=== PATIENT | female | born 1945 | race Hispanic/Latino ===

== ENCOUNTER 2017-08-20 10:03 | Emergency (ER) | payer MEDICARE, OTHER ==
[2017-08-20 10:50] LABS: #Basophils 0.1 thou/uL (0.0-0.2); #Eosinphils 0.2 thou/uL (0.0-0.7); #Lymphocytes 2.5 thou/uL (1.20-3.40); #Monocytes 0.3 thou/uL (0.11-0.59); #Neutrophils 4.7 thou/uL (1.40-6.50); %Basophils 0.7 % (0.0-1.0); %Eosinophils 2.8 % (0.0-10.0); %Lymphocytes 31.6 % (21.0-51.0); %Monocytes 4.4 % (0.0-10.0); Hematocrit 37.3 % (36.0-47.0); Mean Platelet Volume 7.7 fL (7.4-10.4); Red Blood Cell (RBC) Count 3.63 mill/uL (4.20-5.40); White Blood Cell (WBC) Count 7.8 thou/uL (4.8-10.8)
[2017-08-20 11:14] LABS: ALT (SGPT) 29 U/L (8-55); AST (SGOT) 36 U/L (5-34); Alkaline Phosphatase 153 U/L (40-150); Anion Gap 11 mmol/L (10-20); BUN (Urea Nitrogen) 29 mg/dL (9.8-20.1); Bilirubin, Total 0.3 mg/dL (0.2-1.2); Calc. Creatinine Clearance 0 mL/min (70-130); Calcium 8.6 mg/dL (7.8-10.44); Carbon Dioxide 24 mmol/L (23-31); Chloride 115 mmol/L (98-107); Estimated GFR-MDRD 81; Globulin 4.4 g/dL (2.4-3.5); Protein, Total 7.1 g/dL (6.0-8.3)
[2017-08-20 11:19] LABS: Troponin I Less than 0.010 ng/mL (< 0.028)
--- NOTE | 2017-08-20 11:21 | RAD ---
PORTABLE CHEST: Date: 08/20/17 HISTORY: Dyspnea. COMPARISON: 08/31/16. FINDINGS: Slight elevation right hemidiaphragm is stable. Relatively poor inspiration. Visualized lung saab appear clear with no infiltrate or effusion seen. Heart size is mildly prominent. Vascular markings within normal range. Old left-sided rib fractures noted. IMPRESSION: No evidence of acute process. POS: [facility]
--- NOTE | 2017-08-20 13:05 | CT ---
CT ANGIO CHEST WITH CONTRAST: Date: 08/20/17 Multiple axial tomograms obtained through chest following pulmonary angio protocol with multiplanar reconstruction and 3D postprocessing. HISTORY: D-Dimer elevation. Shortness of breath. FINDINGS: Pulmonary arteries show adequate enhancement. No evidence of pulmonary embolus identified. Mild atelectasis in the posterior lung bases. No evidence of lung infiltrate. There is a calcified g ranuloma in the anterior left mid lung measuring up to 6.0 mm. There is another smaller calcified gr anuloma seen in the left mid lung anteriorly on the left, which is pleural based, measuring approxim ately 3.0 mm. Thoracic aorta shows no evidence of dissection. There are atherosclerotic changes seen. Mediastinum unremarkable. Images through upper abdomen are unremarkable. IMPRESSION: 1. No evidence of pulmonary embolus. 2. No evidence of inflammatory lung infiltrate. POS: [facility]
[2017-08-20] MEDS ORDERED: ISOVUE-370 76%-LOCM 1 ML ONE (15:26)
== END 2017-08-20 13:30 ==
LOC: ERS 10:03
DX: R06.02 Shortness of breath (principal); I10 Essential (primary) hypertension; E78.5 Hyperlipidemia, unspecified; Z86.73 Personal history of transient ischemic attack (TIA), and cerebral infarction without residual deficits
CPT/HCPCS: 36415; 71010; 71275; 80053; 82553; 84484; 85025; 85379

== ENCOUNTER 2017-10-06 09:15 | Inpatient (IN) | payer MEDICARE, MEDICAID ==
[2017-10-06 09:41] LABS: #Eosinphils 0.2 thou/uL (0.0-0.7); #Lymphocytes 1.8 thou/uL (1.20-3.40); #Monocytes 0.4 thou/uL (0.11-0.59); #Neutrophils 6.4 thou/uL (1.40-6.50); %Eosinophils 2.8 % (0.0-10.0); %Lymphocytes 20.6 % (21.0-51.0); %Monocytes 4.3 % (0.0-10.0); Hematocrit 33.2 % (36.0-47.0); Mean Platelet Volume 7.1 fL (7.4-10.4); Red Blood Cell (RBC) Count 3.19 mill/uL (4.20-5.40); White Blood Cell (WBC) Count 8.9 thou/uL (4.8-10.8)
[2017-10-06 09:56] LABS: Bilirubin Negative (Negative); Blood, Urine Negative (Negative); Glucose, Urine (Dipstick) Negative (Negative); Ketone, Urine Negative (Negative); Nitrite Negative (Negative); Protein, Urine (Dipstick) 30 mg/dL (Neg-Trace)
[2017-10-06 09:58] LABS: Bacteria/HPF Rare-Few HPF (None Seen); RBC/HPF None Seen HPF (0-3); WBC/HPF 0-3 HPF (0-3)
[2017-10-06 10:01] LABS: Troponin I Less than 0.010 ng/mL (< 0.028)
[2017-10-06 10:07] LABS: Lactic Acid - Sepsis 1.7 mmol/L (0.5-2.2)
[2017-10-06 10:17] LABS: Hyaline Casts/LPF 0-3 HYALINE CAST LPF (0-3 Hyaline)
[2017-10-06 10:18] LABS: Yeast-All Forms None Seen HPF (None Seen)
[2017-10-06 10:36] LABS: ALT (SGPT) 20 U/L (8-55); AST (SGOT) 29 U/L (5-34); Alkaline Phosphatase 182 U/L (40-150); Anion Gap 9 mmol/L (10-20); BUN (Urea Nitrogen) 41 mg/dL (9.8-20.1); Bilirubin, Total Less than 0.2 mg/dL (0.2-1.2); CK (CPK) 101 U/L (29-168); Calc. Creatinine Clearance 0 mL/min (70-130); Calcium 8.7 mg/dL (7.8-10.44); Carbon Dioxide 27 mmol/L (23-31); Chloride 113 mmol/L (98-107); Estimated GFR-MDRD 76; Globulin 4.6 g/dL (2.4-3.5); Lipase 41 U/L (8-78); Protein, Total 7.1 g/dL (6.0-8.3)
--- NOTE | 2017-10-06 10:52 | RAD ---
PORTABLE CHEST: Date: 10/06/17 HISTORY: Dyspnea. COMPARISON: 08/20/17. FINDINGS: No definite infiltrate on this portable projection. No significant effusion. Old left rib fractures a gain noted. Heart size upper normal and stable. Prominent aortic calcification. IMPRESSION: No evidence of infiltrate or acute interval change identified. POS: [facility]
--- NOTE | 2017-10-06 11:29 | CT ---
CONTRAST ENHANCED CTA CHEST: HISTORY: Dyspnea. TECHNIQUE: Contrast-enhanced CTA of chest was performed. Two-D and 3D reconstructed images performed on an [employer] 3D work station. COMPARISON: Comparison is made to a previous CTA chest from 08/20/17. FINDINGS: There is interval development of a new area of consolidation and atelectasis which has increased in t he posterior aspect of the right lower lobe. An area of soft tissue density has developed also in th e left lower lobe possibly represent a round pneumonia or areas of atelectasis. This also was not pr esent on the previous exam. No evidence of a filling defect is seen in the pulmonary arteries to sug gest pulmonary emboli. The aorta is unremarkable. There is a newly developed airspace opacity in th e lateral aspect of the right middle lobe. Heterogeneity is seen in the gallbladder with some heterogeneous wall enhancement. This may represen t acute cholecystitis. Other possibilities could include gallbladder neoplasm. IMPRESSION: 1. Multiple increasing areas of airspace disease concerning for areas of patchy pneumonia as describ ed above. 2. Gallbladder wall thickening concerning for acute cholecystitis versus possible gallbladder wall n eoplasm. Correlate with right upper quadrant sonography as well as surgical consultation. POS: [facility]
[2017-10-06] MEDS ORDERED: MEROPENEM 1 GM/50 ML 1 GM in Premix Bag 1 BAG IVPB SCH (12:00)
[2017-10-06] MEDS ORDERED: Piperacillin/Tazobactam 4.5 GM in Sodium Chloride 0.9% 100 ML IVPB SCH (12:00)
[2017-10-06] MEDS ORDERED: cefTRIAXone\\ROCEPHIN 1 GM in Sodium Chloride 0.9% 100 ML IVPB SCH (13:05)
[2017-10-06] MEDS ORDERED: Acetaminophen 325 MG TAB PO PRN (13:05)
[2017-10-06] MEDS ORDERED: Ondansetron ODT 4 MG TAB PO PRN (13:05)
[2017-10-06 13:16] VITALS: BMI 24.8
[2017-10-06] MEDS ORDERED: cefTRIAXone\\ROCEPHIN 1 GM, Syringe 0.4 ML in Sterile Water 9.6 ML SLOW IVP SCH (14:00)
[2017-10-06] MEDS: Sodium Chloride 0.9% 1,000 ML IV SCH ×2 (14:49→23:15)
[2017-10-06] MEDS: Azithromycin 500 MG in Sodium Chloride 0.9% 250 ML 250 ML IVPB SCH (14:50)
[2017-10-06 14:58] LABS: Strp pneuU Control Background? CLEAR/WHITE (CLR/WHITE); Strp pneumo Control Bar Appear YES (CONTROL BAR)
[2017-10-06] MEDS ORDERED: ISOVUE-370 76%-LOCM 1 ML ONE (17:26)
--- NOTE | 2017-10-06 17:37 | ULT ---
RIGHT UPPER QUADRANT ULTRASOUND 10/06/17 INDICATION: History of cholelithiasis. COMPARISON: CTA of the thorax dated 10/06/17. FINDINGS: Overlying bowel heavily limits imaged detail. There is a shadowing echogenic focus seen within the expected region of the gallbladder measuring 9 m m suspicious for gallstone. The partially visualized liver measured up to 17.1 cm. No definite focal liver lesion is evident; however, image detail was heavily limited. Common bile duct was not seen. Th e pancreas was not seen. The right kidney measured approximately 8.4 x 5.1 x 4.9 cm without evidence of hydronephrosis. IMPRESSION: 1. Heavily limited exam due to overlying bowel gas. 2. Cholelithiasis. The gallbladder was not very well seen due to adjacent bowel gas. 3. Limitations as above. POS: [facility]
--- NOTE | 2017-10-06 17:43 | HP-2 ---
CODE STATUS: DNR PCP: Dr. Lara with [facility]. ATTENDING: Dr. Chun. RESIDENT: Dr. Odonnell. HISTORIAN: Nursing staff in the ER and her family. CHIEF COMPLAINT: Breathing trouble. HISTORY OF PRESENT ILLNESS: A 71-year-old female with past medical history of hypertension and CVA t hat presents with a 2-week history of cough and congestion that resides at a assisted. EMS state s that she was breathing faster and had a nonproductive cough and spiked a fever to 100.0. Nursing s bryanna wanted to evaluate for a pulmonary embolism, so she was brought to the ED. When she was brought to the ED, family and nursing staff report that she has been at baseline mentation. She had no othe r complaints at this time. The patient is basically aphasic. In the ER, she was given meropenem, va ncomycin, and Zosyn. PAST MEDICAL HISTORY: Significant for, 1. Hypertension, 2. 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 3. Physical deconditioning. 4. Trigeminal neuralgia. 5. Chronic dysphagia. 6. Dementia. 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 ALLERGIES: LEVAQUIN. MEDICATIONS: Include, 1. Adult aspirin 81 mg p.o. daily. 2. Carbamazepine 100 mg per 5 mL. 3. Polyethylene glycol. 4. Nexium 40 mg p.o. daily. 5. Loperamide. 6. Tylenol 325. 7. Dulcolax. 8. Nutritional supplements. FAMILY HISTORY: Noncontributory. SOCIAL HISTORY: No tobacco, alcohol or drug use. REVIEW OF SYSTEMS: General: Does admit to fevers. Denies any weight change, night sweats, or fatig ue. Eyes: Denies vision change or eye pain. ENT: Denies nasal congestion, rhinorrhea, or sore thr oat. Respiratory: Does admit to cough and congestion. Denies any shortness of breath or exercise i ntolerance. Cardiovascular: Denies chest pain, palpitations edema, or orthopnea. Gastrointestinal: Denies nausea, vomiting, diarrhea, constipation, abdominal pain, GI bleeding. Genitourinary: Delvis es incontinence, dysuria, polyuria, discharge. Skin: Denies rashes, lesions, jaundice, itching. Mu sculoskeletal: Denies pain, tenderness, stiffness, swelling, or arthritis. Neurologic: Denies weak ness, numbness, syncope, seizures. Psychiatric: Denies anxiety or depression. PHYSICAL EXAMINATION: VITAL SIGNS: Blood pressure 111/62, pulse 72, respirations 25, temperature max was 100.0, pulse oxim etry 99% on room air, current weight is 68 kilos. GENERAL: Alert and oriented. She was moaning, well-developed, well-nourished. She would shake her head to yes or no questions, but basically was aphasic. EYES: PERRLA. Conjunctivae within normal limits. ENT: Dry mucous membranes. NECK: Supple, with thyromegaly. CARDIOVASCULAR: Regular rate and rhythm. No murmurs, no gallops. Radial pulses and pedal pulses we re equal bilaterally. She was tachypneic. CHEST: She has had no retractions. She had rhonchi anteriorly. Breath sounds difficult to assess, because of her moaning. SKIN: Warm, dry. No cyanosis. No lesions. ABDOMEN: She was soft. She did have tenderness to palpation in right upper quadrant. No masses or distention. EXTREMITIES: No clubbing, cyanosis, no edema. MUSCULOSKELETAL/NEUROLOGICAL EXAMS: Were not performed on this patient. She did have a left-sided f acial droop that is longstanding and her mentation is at baseline. PSYCHIATRIC: She was appropriate. LABORATORY DATA: She had a white blood cell count of 8.9, platelet count of 402, hemoglobin of 10.4, hematocrit 33.2, MCV of 104%, neutrophils 72.4, CK 101, CK-MB 0.8, troponin I is less than 0.01, lip ase 41. BNP was 51.2. Sodium 145, potassium 4.3, chloride 113, bicarbonate 27, BUN 41, creatinine 0 .75, glucose 274. Calcium was 8.7, total protein 7.1, albumin 2.5, AST was 29, ALT 20, alkaline phos phatase 182, total bilirubin is less than 0.2. Influenza A and B were negative. Lactate was 1.7. E KG showed sinus rhythm with few PVCs. Chest x-ray showed no evidence of infiltrate or acute interval change. IMAGING: CTA of the chest showed multiple increasing areas of airspace disease concerning for patchy pneumonia and gallbladder wall thickening. ASSESSMENT AND PLAN: This is a 71-year-old female, who presents with: 1. Pneumonia, community acquired versus aspiration pneumonia. We will give her azithromycin, vancom ycin, and Zosyn. We will give her IV fluids. We do have blood and urine cultures pending and O2 sup plementations if needed. 2. Gallbladder wall thickening, found on CT scan. We will get a right upper quadrant ultrasound and correlate clinically to determine if surgery consult is needed. 3. History of a CVA. Her mentation is at baseline. We will follow that along. 4. Hypertension. We will keep her systolic blood pressure low in 160. Do not anticipate any proble ms with this, as she is not medicated at home. 5. Physical deconditioning. We will get a PT evaluation and treatment. 6. Hyperglycemia without a diagnosis of diabetes. We will trend her glucose and see if it stays earnestine vated. DISPOSITION AND LENGTH OF HOSPITAL STAY: Medically 2 midnights. Symptomatic medications will be pro vided. History and physical exams as well as management has been discussed with Dr. Chun.
[2017-10-06] MEDS: Piperacillin/Tazobactam 3.375 GM in Sodium Chloride 0.9% 100 ML IVPB SCH ×2 (18:21→23:17)
[2017-10-06] MEDS ORDERED: Vancomycin HCl 1 GM in Premix Bag 1 BAG IVPB SCH (23:59)
[2017-10-07 04:35] LABS: #Eosinphils 0.2 thou/uL (0.0-0.7); #Lymphocytes 0.9 thou/uL (1.20-3.40); #Monocytes 0.3 thou/uL (0.11-0.59); #Neutrophils 5.1 thou/uL (1.40-6.50); %Basophils 0.2 % (0.0-1.0); %Eosinophils 3.3 % (0.0-10.0); %Lymphocytes 13.9 % (21.0-51.0); %Monocytes 4.2 % (0.0-10.0); Hematocrit 29.4 % (36.0-47.0); Mean Platelet Volume 7.1 fL (7.4-10.4); Red Blood Cell (RBC) Count 2.84 mill/uL (4.20-5.40); White Blood Cell (WBC) Count 6.5 thou/uL (4.8-10.8)
[2017-10-07 04:46] LABS: Anion Gap 8 mmol/L (10-20); BUN (Urea Nitrogen) 30 mg/dL (9.8-20.1); Calc. Creatinine Clearance 70 mL/min (70-130); Carbon Dioxide 25 mmol/L (23-31); Chloride 115 mmol/L (98-107); Estimated GFR-MDRD 84
[2017-10-07] MEDS: Piperacillin/Tazobactam 3.375 GM in Sodium Chloride 0.9% 100 ML IVPB SCH ×4 (06:00→23:26)
[2017-10-07] MEDS: Sodium Chloride 0.9% 1,000 ML IV SCH ×3 (06:03→23:30)
--- NOTE | 2017-10-07 06:35 | PDOC.FM ---
- Subjective Subjective: Patient is aphasic. Patient is still having the "moaning" with breathing. She denies any pains anywhere. She denies trouble breathing. Patient is difficult to interview. - Objective Vital Signs & Weight: Vital Signs (12 hours) Temp Pulse Resp BP Pulse Ox 10/07/17 05:05 98.2 F 73 16 133/76 94 L 10/07/17 00:00 98.2 F 68 18 125/59 L 96 10/06/17 21:42 97.7 F 67 18 122/73 97 10/06/17 20:25 97.7 F 67 18 97 Weight Weight 59.591 kg Result Diagrams: 10/07/17 04:18 10/07/17 04:18 <Lei Odonnell - Last Filed: 10/07/17 07:55> - Objective Vital Signs & Weight: Vital Signs (12 hours) Temp Pulse Resp BP Pulse Ox 10/07/17 08:07 97.9 F 67 16 125/83 97 10/07/17 05:05 98.2 F 73 16 133/76 94 L 10/07/17 00:00 98.2 F 68 18 125/59 L 96 Weight Weight 59.591 kg Result Diagrams: 10/07/17 04:18 10/07/17 04:18 <Mae Pierson - Last Filed: 10/07/17 10:41> Phys Exam - Physical Examination HEENT: moist MMs Neck: no nodes Respiratory: no wheezing Heart to auscultate with moaning sounds Cardiovascular: RRR, no significant murmur Gastrointestinal: soft, non-tender, no distention, positive bowel sounds Specifically nontender in RUQ Musculoskeletal: no edema, pulses present Neurological: non-focal, normal sensation, moves all 4 limbs Lymphatic: no nodes Psychiatric: normal affect, A&O x 3 Skin: no rash <Lei Odonnell - Last Filed: 10/07/17 07:55> Dx/Plan (1) Pneumonia Code(s): J18.9 - PNEUMONIA, UNSPECIFIED ORGANISM Status: Acute QualifierTitle: Laterality: bilateral Plan: -Aspiration vs. Community Acquired -Vanc, Zosyn, Azithrymycin 10/06 -Vanc stopped 10/07 -Will monitor for signs and symptoms of worsening. (2) Weakness due to cerebrovascular accident Code(s): I63.9 - CEREBRAL INFARCTION, UNSPECIFIED; R53.1 - WEAKNESS Status: Chronic Plan: -CVA 6 years ago -Left sided facial droop and weakness -Staff and Family report patient is at baseline. (3) Hyperglycemia Code(s): R73.9 - HYPERGLYCEMIA, UNSPECIFIED Status: Acute Plan: -No known diagnosis of DM -Will get A1C (4) Physical deconditioning Code(s): R53.81 - OTHER MALAISE Status: Acute Plan: -Chronic from CVA weakness -PT evaluation and treatment will see -Will return to [facility] care facility on discharge. (5) Thickening of wall of gallbladder Code(s): K82.8 - OTHER SPECIFIED DISEASES OF GALLBLADDER Status: Acute Plan: -Seen initially on CT scan -RUQ US showed Cholithiasis with limitations from bowel gas -Will consider surgery consultation if symptomatic or signs of infection present. - Plan Plan: Will continue current plan of care. <Lei Odonnell - Last Filed: 10/07/17 07:55> Attending Addendum - Attending Addendum I personally evaluated the patient and discussed the management with Dr. Odonnell I agree with the History, Examination, Assessment and Plan documented above with any addition or exceptions noted below- Ptainet aphasic unable to respond except with moaning. Afebrile VSS. A/P: 1) Pneumonia- continue zosyn and zithromax; continue to monitor resp status. Currently no tachypena and normal O2 sats. 2) HTN- continue home meds, 3) H/o CVA with residual aphasia and left sided weakness- stable. 4) Hyperglycemia- checl HgBA1c <Mae Pierson - Last Filed: 10/07/17 10:41>
[2017-10-07] MEDS: Enoxaparin Sodium 40 MG/0.4 ML SYRINGE SC SCH (08:45)
[2017-10-07] MEDS ORDERED: FLU VACC TS2017-18 (>65YR) 0.5 ML SYRINGE IM ONE (09:00)
[2017-10-07] MEDS: Azithromycin 500 MG in Sodium Chloride 0.9% 250 ML 250 ML IVPB SCH (14:09)
[2017-10-08 05:09] LABS: Anion Gap 7 mmol/L (10-20); BUN (Urea Nitrogen) 21 mg/dL (9.8-20.1); Calc. Creatinine Clearance 78 mL/min (70-130); Calcium 7.7 mg/dL (7.8-10.44); Carbon Dioxide 22 mmol/L (23-31); Chloride 118 mmol/L (98-107); Estimated GFR-MDRD Greater than 90
[2017-10-08 05:10] LABS: #Eosinphils 0.2 thou/uL (0.0-0.7); #Lymphocytes 1.4 thou/uL (1.20-3.40); #Monocytes 0.3 thou/uL (0.11-0.59); #Neutrophils 4.6 thou/uL (1.40-6.50); %Basophils 0.1 % (0.0-1.0); %Eosinophils 2.6 % (0.0-10.0); %Lymphocytes 21.7 % (21.0-51.0); %Monocytes 5.2 % (0.0-10.0); Hematocrit 28.1 % (36.0-47.0); Mean Platelet Volume 7.1 fL (7.4-10.4); Red Blood Cell (RBC) Count 2.73 mill/uL (4.20-5.40); White Blood Cell (WBC) Count 6.6 thou/uL (4.8-10.8)
[2017-10-08] MEDS: Piperacillin/Tazobactam 3.375 GM in Sodium Chloride 0.9% 100 ML IVPB SCH ×2 (05:37→11:37)
--- NOTE | 2017-10-08 07:14 | PDOC.FM ---
- Subjective Subjective: Patient does not speak. Appears to be at baseline mentation. Specifically denies pain. - Objective Vital Signs & Weight: Vital Signs (12 hours) Temp Pulse Resp BP Pulse Ox 10/08/17 04:00 95 10/08/17 01:05 98.6 F 74 20 122/69 95 10/07/17 20:07 98.6 F 79 22 H 161/80 H 96 10/07/17 19:51 98.8 F 90 18 Weight Weight 59.591 kg I&O: 10/07/17 10/08/17 10/09/17 06:59 06:59 06:59 Intake Total 1527 Output Total 2 Balance 1527 -2 Result Diagrams: 10/08/17 04:41 10/08/17 04:41 <Lei Odonnell - Last Filed: 10/08/17 08:42> - Objective Vital Signs & Weight: Vital Signs (12 hours) Temp Pulse Resp BP Pulse Ox 10/08/17 12:13 97.6 F 89 18 92/61 93 L 10/08/17 08:05 98.3 F 66 18 10/08/17 07:28 98.3 F 66 18 133/65 94 L 10/08/17 04:00 95 10/08/17 01:05 98.6 F 74 20 122/69 95 Weight Weight 59.591 kg I&O: 10/07/17 10/08/17 10/09/17 06:59 06:59 06:59 Intake Total 1527 20 Output Total 2 Balance 1527 18 Result Diagrams: 10/08/17 04:41 10/08/17 04:41 <Mae Pierson - Last Filed: 10/08/17 12:29> Phys Exam - Physical Examination HEENT: PERRLA, moist MMs Neck: no nodes, supple Respiratory: clear to auscultation bilateral Airway sounds improved from yesterday. No longer moaning with breaths Cardiovascular: RRR, no significant murmur Gastrointestinal: soft, non-tender, no distention, positive bowel sounds Musculoskeletal: no edema, pulses present Neurological: non-focal, normal sensation, moves all 4 limbs Lymphatic: no nodes Psychiatric: normal affect, A&O x 3 Skin: no rash <Lei Odonnell - Last Filed: 10/08/17 08:42> Dx/Plan (1) Pneumonia Code(s): J18.9 - PNEUMONIA, UNSPECIFIED ORGANISM Status: Acute QualifierTitle: Laterality: bilateral Plan: -Aspiration vs. Community Acquired -Zosyn, Azithrymycin 10/06 -Vanc stopped 10/07 -Will monitor for signs and symptoms of worsening. -Patient has been afebrile during stay, non labored breathing, not tachypneic, normal laboratory values. -Will be discharged back to [place] today with antibiotics. (2) Weakness due to cerebrovascular accident Code(s): I63.9 - CEREBRAL INFARCTION, UNSPECIFIED; R53.1 - WEAKNESS Status: Chronic Plan: -CVA 6 years ago -Left sided facial droop and weakness -Staff and Family report patient is at baseline. 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 (5) Thickening of wall of gallbladder Code(s): K82.8 - OTHER SPECIFIED DISEASES OF GALLBLADDER Status: Acute Plan: -Seen initially on CT scan -RUQ US showed Cholithiasis with limitations from bowel gas -Will consider surgery consultation if symptomatic or signs of infection present. -Ruled out acute event, will discuss with family if symptoms reoccur - Plan Plan: Plan to discharge to [place] today. <Lei Odonnell - Last Filed: 10/08/17 08:42> Attending Addendum - Attending Addendum I personally evaluated the patient and discussed the management with Dr. Odonnell I agree with the History, Examination, Assessment and Plan documented above with any addition or exceptions noted below- Patient awake; no moaning. Afebrile VSS A/P: Pneumonia- back to baseline; no distress noted; D/c back to [facility] with po antibiotics, 2) Incidental finding of gallstones- tolerting tube feeds; no evidence of cholecytitis or symptomatic cholelothiasis- continue to monitor. <Mae Pierson - Last Filed: 10/08/17 12:29>
[2017-10-08 08:48] LABS: Hemoglobin A1c 7.2 % (4.0-6.0)
[2017-10-08] MEDS: Enoxaparin Sodium 40 MG/0.4 ML SYRINGE SC SCH (09:19)
[2017-10-08 12:14] VITALS: BP 92/61; TEMP 97.6
--- NOTE | 2017-10-09 00:04 | DIS-2 ---
DATE OF ADMISSION: 10/06/2017 DATE OF DISCHARGE: 10/08/2017 RESIDENT: Lei Odonnell MD ADMITTING ATTENDING: Vaughn Landon MD DISCHARGE ATTENDING: Mae Pierson MD CONSULTATIONS: PT evaluation and treatment and for wound care. PROCEDURES: The patient underwent a chest x-ray on 10/06/2017 that showed no evidence of infiltrate or acute interval change. She also underwent a chest thorax CTA that showed multiple increasing areas of airspace disease concerning for areas of patchy pneumonia. Also, gallbladder wall thickening concerning for acute cholecystitis versus possible gallbladder wall neoplasm correlate with right upper quadrant ultrasound sonography as well as surgical consultation. She also went under abdominal ultrasound that showed a heavily- limited exam due to overlying bowel gas, cholelithiasis, the gallbladder was not very well seen due to adjacent bowel gas. PRIMARY DIAGNOSES: 1. Pneumonia, suspected aspiration versus community acquired. 2. Weakness due to a past cerebrovascular accident. 3. Hyperglycemia. 4. Physical deconditioning. 5. Thickening of wall of gallbladder. DISCHARGE MEDICATIONS: 1. Aspirin 81 mg. 2. Carbamazepine 100 mg b.i.d. 3. Polyethylene glycol. 4. Nexium 20 mg. 5. Multivitamin. 6. Augmentin 875 mg q. 12 hours, #10. 7. Azithromycin 500 mg daily, #3. DISCONTINUED MEDICATIONS: None. HISTORY OF PRESENT ILLNESS AND HOSPITAL COURSE: This is a 71-year-old female with a past medical history of hypertension and CVA, who presents with a 2-week history of cough and congestion, who resides at a correction. EMS states that she has been breathing faster, had a nonproductive cough, and spiked a fever to 100.0. Nursing staff wanted to evaluate for pulmonary embolism, so she was then brought to the ED. Family and nursing staff report that she has been at baseline mentation. She has had no other complaints at this time. The patient is basically aphasic. In the ER, she was given meropenem, vancomycin, and Zosyn. During this hospitalization, the patient's respiratory status improved. She never required oxygen supplementation. Her oxygen saturations ranged from 92- 97. Her breathing rate ranged from 18-22 and down to 18 on discharge. She no longer had any of the extra respiratory rhonchorous sounds on examination. She does make some moaning and groaning noises with some of her breaths that make interpretation of her lung exam difficult. The patient was afebrile during her entire hospitalization. She never was tachycardic and claims that she has any acute infection that was not treated during this hospitalization. She did have a urine Strep pneumoniae antigen that was negative. White blood cell count ranged from 8.9 to 6.6 on day of discharge. Her glucose did range from 274 to 168 and a hemoglobin A1c was 7.2. I do recommend that be followed out into the future. The patient was evaluated for gallbladder wall thickening during this time as well. She was not found to have any acute infection such as cholecystitis. The patient did have gallstones present on exam; however, she was not tender on examination. She did not have a white blood cell count. She did not have any other signs of severe infection and so that has been deferred for outpatient followup as needed going forward. The patient otherwise had no other complications during this hospitalization and will be discharged in appropriate condition. DISPOSITION: Stable. DISCHARGE INSTRUCTIONS: Location: She will be discharged back to the correction, [facility], here in [facility] [place]. Diet: Her tube feedings. Activity: As tolerated. No restrictions. Followup: With her primary care provider, Dr. Champ Lara, in 3 days to ensure her re-admission status to a correction and to evaluate her condition as she continues to improve. We wished her the best of luck and no further complications from this condition. WILFRID
== END 2017-10-08 13:46 | DRG 178 ==
LOC: ERS 09:15 → T4-B 11:35
PROVIDERS: ADMIT Family Medicine; ATTEND Family Medicine
DX: J69.0 Pneumonitis due to inhalation of food and vomit (principal); I69.954 Hemiplegia and hemiparesis following unspecified cerebrovascular disease affecting left non-dominant side; L89.309 Pressure ulcer of unspecified buttock, unspecified stage; F03.90 Unspecified dementia, unspecified severity, without behavioral disturbance, psychotic disturbance, mood disturbance, and anxiety; I69.920 Aphasia following unspecified cerebrovascular disease; R13.12 Dysphagia, oropharyngeal phase; E86.0 Dehydration; J18.9 Pneumonia, unspecified organism; I69.991 Dysphagia following unspecified cerebrovascular disease; I10 Essential (primary) hypertension; G50.0 Trigeminal neuralgia; Z88.1 Allergy status to other antibiotic agents; Z79.82 Long term (current) use of aspirin; R73.9 Hyperglycemia, unspecified; Z93.1 Gastrostomy status; D47.3 Essential (hemorrhagic) thrombocythemia; R53.1 Weakness; Z66 Do not resuscitate; K21.9 Gastro-esophageal reflux disease without esophagitis; R62.7 Adult failure to thrive; K80.20 Calculus of gallbladder without cholecystitis without obstruction
CPT/HCPCS: 36415; 36416; 51701; 71010; 71275; 76705; 80048; 80053; 81003; 81015; 82550; 82553; 83036; 83605; 83690; 83880; 84484; 85025; 87040; 87077; 87086; 87899; 90471; 90732; 93005; 96365; A4216; A4353; G0009; J0456; J0696; J1650; J2543; J3370; J7050

== ENCOUNTER 2017-10-08 21:46 | Inpatient (IN) | payer MEDICARE, MEDICAID ==
[2017-10-08 23:29] LABS: #Lymphocytes 0.6 thou/uL (1.20-3.40); #Monocytes 0.3 thou/uL (0.11-0.59); #Neutrophils 13.8 thou/uL (1.40-6.50); %Eosinophils 0.1 % (0.0-10.0); %Lymphocytes 3.9 % (21.0-51.0); %Monocytes 1.8 % (0.0-10.0); %Neutrophils 94.2 % (42.0-75.0); Hemoglobin 9.6 g/dL (12.0-16.0); Mean Corpuscular HGB CONC 32.3 g/dL (32.0-36.0); Mean Corpuscular Hemoglobin 33.3 pg (27.0-31.0); Platelet Count 328 thou/uL (130-400); RBC Distribution Width 13.7 % (11.5-14.5); Red Blood Cell (RBC) Count 2.89 mill/uL (4.20-5.40); White Blood Cell (WBC) Count 14.6 thou/uL (4.8-10.8)
[2017-10-08 23:36] LABS: INR-International Normal Ratio 1.2; PTT 32.5 SEC (22.9-36.1); Prothrombin Time 15.4 SEC (12.0-14.7)
[2017-10-08 23:56] LABS: ALT (SGPT) 85 U/L (8-55); AST (SGOT) 164 U/L (5-34); Albumin 2.4 g/dL (3.4-4.8); Alkaline Phosphatase 208 U/L (40-150); Anion Gap 12 mmol/L (10-20); BUN (Urea Nitrogen) 28 mg/dL (9.8-20.1); Bilirubin, Total 1.3 mg/dL (0.2-1.2); Calc. Creatinine Clearance 0 mL/min (70-130); Calcium 8.1 mg/dL (7.8-10.44); Carbon Dioxide 22 mmol/L (23-31); Chloride 115 mmol/L (98-107); Estimated GFR-MDRD 72; Globulin 3.9 g/dL (2.4-3.5); Glucose 337 mg/dL (83-110); Iron 18 ug/dL (50-170); Potassium 4.1 mmol/L (3.5-5.1); Protein, Total 6.3 g/dL (6.0-8.3); Sodium 145 mmol/L (136-145)
[2017-10-09] MEDS ORDERED: Sodium Chloride 0.9% 500 ML IV SCH (02:30)
[2017-10-09] MEDS ORDERED: Sodium Chloride 0.9% 1,000 ML IV SCH (02:30)
[2017-10-09] MEDS ORDERED: Insulin Regular 300 UNITS/3 ML VIAL SC PRN (02:43)
[2017-10-09] MEDS ORDERED: Dextrose 5% in Water 1,000 ML IV PRN (02:43)
[2017-10-09] MEDS ORDERED: Dextrose 50% Abboject 50 ML SYRINGE SLOW IVP PRN (02:43)
[2017-10-09 03:00] LABS: Lactic Acid 2.8 mmol/L (0.5-2.2)
[2017-10-09 03:09] LABS: Acetaminophen Less than 6.0 mcg/mL (10.0-30.0); Alcohol Less than 10 mg/dL (Less than 10); Salicylate Less than 8.0 mg/dL (15.0-30.0)
[2017-10-09] MEDS ORDERED: Azithromycin 500 MG in Sodium Chloride 0.9% 250 ML 250 ML IVPB SCH (04:00)
[2017-10-09] MEDS ORDERED: Morphine 4 MG/ML VIAL SLOW IVP PRN (04:27)
--- NOTE | 2017-10-09 04:41 | PDOC.EVN ---
Event Note - Event Note Event Note: We were notified by Dr. Moore that CT preliminary read had returned and was concerning. CT was read as large pocket of dense extravasated contrast surrounded by 8.5 cm hematoma in the right lobe of the liver consistent with brisk active intrahepatic hemorrhage, presumably from portal venous or hepatic arterial brance. Other findings included probable infarction in lateral aspect of right lobe of liver. Emergent surgical or interventional radiology consultation was recommended. I spoke with Dr. Lozada, general surgery, at approximately 0400 and reviewed the case with him. He stated that the findings were unlikely to explain her GI bleed but that she was likely a poor candidate for endoscopy at this time. He stated that based on the findings reviewed with him, embolization is unlikely to help and the the only possible option would be major surgery which she was unlikely to survive. I discussed this with her sisters who are at bedside, Mari Breaux and Katya Breaux. Mari Alvarado is her medical decision maker. They have elected to pursue comfort measures only at this time and allow their sister to pass peacefully. Inpatient hospice was called to evaluate patient. At 0430, I was called to bedside as the patient' s heart rate was dropping. She still had a detectable pulse by Doppler. At 0438, patient went into asystole and had stopped breathing. Absence of cardiac was determined by ultrasound
--- NOTE | 2017-10-09 05:13 | PDOC.EVN ---
Event Note - Event Note Event Note: Note: Called to bedside due to patient entering asystole on monitor and no longer breathing spontaneously. Physical Exam: HEENT: Pupils fixed and dilated Cardiovascular: No pulse, no auscultated heart sounds, no heart sounds on Doppler Respiratory: No spontaneous respirations Neuro: No withdrawal to painful stimuli TOD: 10/09/2017 at 0438. The family does not request an autopsy. Cause of : Intrahepatic hemorrhage
--- NOTE | 2017-10-09 07:35 | RAD ---
CHEST 1 VIEW: Date: 10/09/17 HISTORY: Tachypnea. Pneumonia. COMPARISON: 10/06/15. FINDINGS: Limited evaluation of the cardiac silhouette due to decreased lung volumes. There are bibasilar pleur al and parenchymal changes. No definite pneumothorax. There is atherosclerosis of the aorta. IMPRESSION: 1. Bibasilar pleural and parenchymal changes. 2. Atherosclerosis of the aorta. POS: [facility]
--- NOTE | 2017-10-09 08:06 | ULT ---
RIGHT UPPER QUADRANT ULTRASOUND: DATE: 10/09/17. COMPARISON: None. HISTORY: Transaminitis, history of cholelithiasis. TECHNIQUE: Multiplanar abrams scale sonographic imaging of the right upper quadrant obtained. FINDINGS: The pancreas is poorly visualized secondary to bowel gas. The gallbladder cannot be discretely visua lized. Common bile duct is dilated, measuring 8 mm. The hepatic parenchyma is heterogeneous and ech ogenic, suggesting hepatocellular disease, potentially on the basis of steatosis. Right kidney measu res in the 8 cm range and demonstrates no evidence for stone, hydronephrosis, or mass. The upper abd omen is better assessed on the CT of the abdomen and pelvis performed 10/09/17. IMPRESSION: Suboptimal assessment of the right upper quadrant structures. Gallbladder and pancreas cannot be dis cretely visualized. POS: [facility]
--- NOTE | 2017-10-09 08:38 | DS-2 ---
DATE OF ADMISSION: 10/09/2017 DATE OF : 10/09/2017 TIME OF : 437 ATTENDING: Craig Purdy M.D. RESIDENT: Fredy Rene D.O. CAUSE OF : Intrahepatic hemorrhage. SECONDARY DIAGNOSES: 1. Acute gastrointestinal bleed. 2. Acute liver failure. 3. Pneumonia. 4. History of cerebrovascular accident. 5. Hypertension. 6. Aphasia. 7. Diabetes mellitus type 2. HOSPITAL COURSE: Ms. Thompson was a 71-year-old female recently discharged from [facility] following an admission for pneumonia. On the same day of discharge, she was at [facility] where she was a resident when she developed bright red blood per rectum, soaking through her brief per senior care staff and passing a large clot as reported by senior care staff. Her primary care doctor, Dr. Champ Lara was contacted and had her sent to the Emergency Department. She was evaluated in the emergency department and was found to have bright red blood per rectum and occult blood was positive. The patient initially presented with overall normal vital signs; however, she developed increasing shortness of breath and it was notable that her previously normal liver function studies were now elevated. CT abdomen was ordered and demonstrated an intrahepatic hemorrhage. The patient was developing increasing respiratory rate and agonal breathing and appeared to be worsening. I briefly reviewed the patient with Dr. Lozada, the surgeon chemical economist , to discuss the options as noted in my event note and the patient's chart. Dr. Lozada stated that major surgery was likely the only option for stopping the patient's bleeding if she was having intrahepatic hemorrhage; however, the patient was unlikely to survive surgery. I discussed the risk and benefits of surgery and potential therapeutic options with the patient's sisters, Mari Breaux and Katya Breaux. Mari Alvarado was the patient's medical decision maker. They briefly discussed it and decided that they believe that her sister should be placed on comfort measures only. Inpatient hospice was contacted; however, the patient continued to decline and her heart rate dropped and she at 0438 prior to evaluation by inpatient hospice. Absence of cardiac activity was demonstrated on ultrasound. No pulses found on Doppler. Pupils were fixed and dilated and there was no spontaneous breathing. Patient was pronounced at 0438. We would like to pass our condolences to Ms. Thompson's family. Our prayers will be with them as they mourn Mrs. Thompson's passing. MTDD
--- NOTE | 2017-10-09 08:39 | HP-2 ---
CODE STATUS: DNR. TIME OF ENCOUNTER: 0030 on 10/08/18 PRIMARY CARE PHYSICIAN: Dr. Lara with [facility]. ATTENDING: Dr. Purdy. RESIDENT: Alan Fields M.D. HISTORIAN: The patient's family CHIEF COMPLAINT: Rectal bleeding. HISTORY OF PRESENT ILLNESS: Ms. Kayley Thompson is a 71-year-old female with past medical history of dementia, hypertension, and CVA, who presents after being sent over to the OR for rectal bleeding. Patient was discharged from [facility] one day ago. The patient was admitted for pneumonia. The patient was discharged on antibiotics. Family states the patient appears to be at baseline mental status and physical status with the exception of breathing faster and the rectal bleeding that occurred at the [facility]. The patient was discharged to [facility] on Augmentin and azithromycin. The patient soaked a diaper with dark red blood at the [facility] yesterday, 10/08. PAST MEDICAL HISTORY: 1. Hypertension. 2. Cerebrovascular accident with left hemiparesis from 6 years ago. 3. Physical deconditioning. 4. Dementia. 5. Trigeminal neuralgia. 6. Chronic dysphagia. 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 ALLERGIES: LEVAQUIN. MEDICATIONS: 1. Aspirin 81 mg p.o. daily. 2. Carbamazepine 100 mg per 5 mL. 3. Polyethylene glycol. 4. Nexium 20 mg. 5. Tylenol 325 mg. 6. Dulcolax. 7. Augmentin 875 mg q.12 hours. 8. Azithromycin 500 mg p.o. daily. FAMILY HISTORY: Noncontributory. SOCIAL HISTORY: Denies tobacco, alcohol, or drug use. REVIEW OF SYSTEMS: Twelve point review of systems including general, eyes, ENT , respiratory, CV, GI, , skin, musculoskeletal, neuro and psych were reviewed and were negative with the exception of a fever and GI bleeding and the patient appearing more pale to the family today. PHYSICAL EXAMINATION: VITAL SIGNS: Blood pressure 142/90, pulse 98, respiratory rate 22, T-max 98.5, pulse ox 94% on 2 liters. Current weight 63 kilograms. GENERAL: The patient was not very alert and not oriented, in no acute distress ; however, the patient was breathing. The patient did have tachypnea. The patient was nonverbal. EYES: Pupils equal, round, react to light and accommodation. Extraocular muscles intact. Conjunctiva within normal limits. ENT: Tympanic membranes pearly abrams without bulging or erythema. Mucous membranes were little dry. NECK: Supple, without lymphadenopathy or thyromegaly. CARDIOVASCULAR: Regular rate and rhythm, no murmurs. RESPIRATORY: The patient was making sounds with every inspiration. LUNGS: The patient's lungs were otherwise clear and there were no retractions; however, the patient was breathing at a faster rate of 22 breaths per minute. ABDOMEN: No tenderness to palpation; however, no bowel sounds were heard and there was distention present. Patient was FOBT positive. EXTREMITIES: No clubbing, cyanosis or edema. MUSCULOSKELETAL: Unable to assess musculoskeletal strength, but structure and tone appear to be within normal limits. NEUROLOGIC: Unable to perform exam due to mental status, but there was some left-sided facial droop. LABORATORY DATA: White blood cell count is 14.6, hemoglobin 9.6, hematocrit 29.9, MCV 103, platelets 328. Sodium 145, potassium 4.1, chloride 115, carbon dioxide 22, BUN 28, creatinine 0.79, glucose 337, calcium 8.1, total protein 6.3 , albumin 2.4, total bilirubin 1.3, AST 164, ALT 85, alkaline phosphatase 208, PT 15.4, INR 1.2, PTT 32.5. FOBT positive. Troponin less than 0.01. ASSESSMENT AND PLAN: A 71-year-old female with gastrointestinal bleed. 1. Acute gastrointestinal bleed. Admit to telemetry. No obvious source of bleeding at this time. Stool studies are pending. CT abdomen and pelvis ordered. We will trend CBC, H&H stable since last admission. We will trend H& H and bolus normal saline. 2. Transaminitis, likely secondary to acute liver failure as the patient has elevated AST, ALT, alkaline phosphatase, and total bilirubin. Right upper quadrant ultrasound ordered. 3. Pneumonia. Supplemental O2 p.r.n. Continue antibiotics, Zosyn started. 4. Type 2 diabetes mellitus. Hemoglobin A1c recently was 7.2. Sliding scale insulin and Accu-Cheks. 5. History of cerebrovascular accident, active bleed. Hold aspirin. 6. Hypertension. Normal blood pressure at this time. Continue to monitor. 7. Macrocytic anemia. Check B12, RBC, folate. 8. Diet n.p.o., hold tube feeds at this time. 9. Activity: Fall precautions and bed rest. 10. Code status: DNR/DNI. DISPOSITION AND LENGTH OF HOSPITAL STAY: Greater than 2 days. Symptomatic medications will be provided. History and physical exam as well as management were discussed with Dr. Purdy. WILFRID
--- NOTE | 2017-10-09 09:11 | CT ---
PRELIMINARY REPORT/[facility]/EMERGENCY AFTER HOURS PROCEDURE: EXAM: CT Abdomen and Pelvis With Intravenous Contrast EXAM DATE/TIME: Exam ordered 10/09/2017 2:28 AM CLINICAL HISTORY: 71 years old, female; Signs and symptoms; Other: Rectal bleeding; Patient HX: F71 presents to ed via ems C/O ems C/O rectal bleeding. The patient was found at her senior care with blood in her diaper. Her family reports that she was discharged today from the hospital with bilateral pneumonia. Her fami ly reports that she has been short of breath. They believe that patient's abdomen is distended and he r left arm is edematous. Patient has a history of TIA and is nonverbal at baseline. TECHNIQUE: Axial computed tomography images of the abdomen and pelvis with intravenous contrast. Coronal reformatted images were created and reviewed. CONTRAST: 96 mL of ISO 370 administered intravenously. COMPARISON: No relevant prior studies available. FINDINGS: Lower thorax: Small bilateral pleural effusions. Dependent and bibasilar atelectasis. Mild fluid dist ention of the distal esophagus suggests gastroesophageal reflux. ABDOMEN: Liver: There is probable infarction in the lateral aspect of the right lobe of the liver. Arterial an d portal venous contrast density are equivalent on this study. As such, it is uncertain if the active hemorrhage in the right lobe of liver is secondary to portal venous or hepatic arterial hemorrhage. Gallbladder and bile ducts: 4.5 cm contained pocket of dense extravasated intravascular contrast surr ounded by 8.5 hematoma in the right lobe of the liver which extends to the gallbladder fossa. There are no cholecystectomy clips visible. No normal gallbladder is identified. It is unclear if the gallb ladder is absent, if it is obscured by hematoma, or if it has been replaced by malignancy given the o utward extension of the hematoma from the right hepatic lobe. Common bile duct is dilated at 1 cm in caliber. No intrahepatic biliary ductal dilatation. No choledocholithiasis. Pancreas: Unremarkable. No mass. No ductal dilation. Spleen: Equivocal small superomedial splenic infarction. Adrenals: Unremarkable. No mass. Kidneys and ureters: Chronic medical renal disease with bilateral renal atrophy. No hydronephrosis. Stomach and bowel: No bowel wall thickening or intestinal obstruction. Appendix: Appendix not visualized. PELVIS: Bladder: Unremarkable. No mass. Reproductive: Unremarkable as visualized. ABDOMEN and PELVIS: Intraperitoneal space: Small volume hyperdense intraperitoneal fluid in the upper abdomen is compatib le with hemoperitoneum. No significant fluid collection. Bones/joints: No acute fracture. No dislocation. Soft tissues: Unremarkable. Vasculature: The IVC and aorta are relatively decreased in caliber suggesting vasoconstriction and hy potension. Lymph nodes: Unremarkable. No enlarged lymph nodes. Other findings: G-tube in place, appears normally positioned. IMPRESSION: 1. Large pocket of dense extravasated intravascular contrast surrounded by 8.5 cm hematoma in the rig ht lobe of the liver, consistent with brisk active intrahepatic hemorrhage, presumably from either a portal venous or hepatic arterial branch. Extension of the hematoma into the gallbladder fossa. No no rmal gallbladder is identified. Given the presence of a large hematoma, presence of a hepatic maligna ncy or gallbladder malignancy cannot be excluded. Small amount of hemoperitoneum in the epigastric pe ritoneal cavity. Recommend emergent surgical and/or interventional radiology consultation. Prior stud ies have been requested to evaluate for baseline liver and gallbladder appearance. 2. There is probable infarction in the lateral aspect of the right lobe of the liver. 3. The IVC and aorta are relatively decreased in caliber suggesting vasoconstriction and hypotension. 4. Small bilateral pleural effusions. 5. Equivocal small superomedial splenic infarction. Findings discussed with Connie JHA at time of interpretation. Thank you for allowing us to participate in the care of your patient. Dictated and Authenticated by: Lc Brito MD 10/09/2017 3:24 AM Central Time ([place] & [place]) FINAL REPORT ABDOMEN CT WITH CONTRAST PELVIC CT WITH CONTRAST: Date: 10/09/17 HISTORY: Abdominal distention. Abdominal pain. Rectal bleeding. COMPARISON: None. CORRELATION: CT angiogram of chest dated 10/06/17, 08/20/17. TECHNIQUE: An abdomen and pelvic CT are performed with IV contrast. Coronal reformatted images are submitted for interpretation. FINDINGS: Small bilateral pleural effusions and bibasilar consolidation due to pneumonia are noted. Heart size and aorta are unremarkable. Spleen, pancreas, and adrenal glands have appropriate enhancement. Symmet cuong enhancement of the kidneys. No obstructive uropathy. No mesenteric mass, lymphadenopathy, free ai r, or free fluid. Percutaneous gastric feeding tube is identified. Multiple normal caliber small xavier l loops. Ileocecal junction is normal. There is fluid attenuation involving the right hemicolon. Flui d attenuation is also noted in the left hemicolon. There is a new area of extravasated contrast in the right hepatic lobe. This extravasated contrast is described in the preliminary report by [facility]. There appears to be infarction in the right hepatic lob e. There is a multiloculated hypodense focus adjacent to the infarcted hepatic parenchyma, likely rep resenting the gallbladder. Findings may be due to cholecystitis or gallbladder malignancy. There is a small amount of perihepatic hemorrhage and fluid. Fluid tracks along the right pericolonic gutter. I nfarction of the right hepatic lobe is suspected with associated hematoma and splaying of the intrahe patic vessels. Common bile duct is dilated. Questionable small splenic infarction. Inferior vena cava is diminutive, suggesting vasoconstriction due to hypotension. Emergent general enciso rgical consultation is recommended. This report is in agreement with the preliminary report by [facility]. Results of study discussed with the ER physician on 10/09/17 at 0625 hours. CODE CR. POS: PPP
[2017-10-09] MEDS ORDERED: ISOVUE-370 76%-LOCM 1 ML ONE (16:59)
--- NOTE | 2017-10-17 14:17 | PQF ---
ASAD MUKHERJEE ROBERT A MD [id number] [facility] [id number] CLINICAL DOCUMENTATION CLARIFICATION FORM: POST DISCHARGE Please clarify if "Increased respiratory rate and agonal breathing", can be further specified. Please exercise your independent, professional judgment in responding to the clarification form. Clinical indicators are provided on the bottom of this form for your review. Thank you. Please check appropriate box(s): [ ] Acute Respiratory Failure: [ ] with Hypoxia [ ] with Hypercapnia [ ] Acute On Chronic Respiratory Failure: [ ] with Hypoxia [ ] with Hypercapnia [ ] Acute Respiratory Failure due to: (etiology) [ ] Acute Respiratory Insufficiency following (if applicable): [ ] trauma [ ] surgery [ ] Chronic Respiratory Failure only [ ] with Hypoxia [ ] with Hypercapnia [ ] Hypoxia [ ] Other diagnosis [ ] Unable to determine In addition, please specify: Present on Admission (POA): [ ] Yes [ ] No [ ] Unable to determine ER; Respiratory rate; 22 - 39 / O2 Sat; 94 on 2L oxygen. H&P; "Sent over to OR for rectal bleeding. Discharged one day ago. Pt was admitted with pneumonia, discharged on antibiotics." PE; "The patient did have tachypnea. The patient was breathing at a faster rate of 22 breaths per minute." SUMMARY; "the patient initially presented with overall normal vital signs ; however, she developed increasing shortness of breath and it was notable her that her previously normal liver function studies were now elevated. The patient was developing increasing respiratory rate and agonal breathing and appeared to be worsening." CLINICAL INDICATORS - SIGNS / SYMPTOMS / LABS Decreased oxygen saturation (<90% room air or < 95% on oxygen). Cyanosis/Hypoxia Labored or rapid respirations (use of accessory muscles or inability to speak full sentences, air hunger) RISK FACTORS Pneumonia CVA Macrocytic anemia Acute GI hemorrhage Intrahepatic hemorrhage TREATMENTS: Oxygen Monitoring of oxygenation status Antibiotics IV (This form is maintained as a part of the permanent medical record) 2014 [email or web address] All Rights Reserved [email or web address] [email or web address] [phone] [facility] SYSTEM[facility]
== END 2017-10-09 04:38 | disposition expired | DRG 441 ==
LOC: ERS 21:46 → 2NO 10-09 02:00 → ERHOLD 10-09 03:35
PROVIDERS: ADMIT Family Medicine; ATTEND Family Medicine
DX: K76.89 Other specified diseases of liver (principal); J18.9 Pneumonia, unspecified organism; I69.354 Hemiplegia and hemiparesis following cerebral infarction affecting left non-dominant side; K92.2 Gastrointestinal hemorrhage, unspecified; R13.10 Dysphagia, unspecified; F03.90 Unspecified dementia, unspecified severity, without behavioral disturbance, psychotic disturbance, mood disturbance, and anxiety; E11.9 Type 2 diabetes mellitus without complications; D53.9 Nutritional anemia, unspecified; I10 Essential (primary) hypertension; K72.00 Acute and subacute hepatic failure without coma; K76.3 Infarction of liver; Z51.5 Encounter for palliative care; Z79.82 Long term (current) use of aspirin; Z66 Do not resuscitate; R29.810 Facial weakness
CPT/HCPCS: 36415; 71010; 74177; 76705; 80307; 82274; 82728; 83540; 83605; 83630; 83880; 85610; 85730; 86850; 86900; 86901; 87040; 87045; 87046; 87324; 87449; 87899; 96360; 96361; J0456; J7050